=== PATIENT | male | born 1985 | race Caucasian/White ===

== ENCOUNTER 2024-05-28 16:15 | Emergency (ER) | payer OTHER ==
[~2024-05-28] VITALS: Ht 175.3 cm; Wt 99.3 kg
[2024-05-28] MEDS: KETOROLAC TROMETHAMINE 30 MG/ML VIAL IM STA (17:20)
[2024-05-28] MEDS: TRAMADOL HCL 50 MG TAB PO ONE (17:21)
[2024-05-28] MEDS ORDERED: NAPROXEN250 MG PO (17:33)
[2024-05-28 17:45] VITALS: PULSE 57; RESP 16; TEMP 97.9; O2SAT 96
== END 2024-05-28 17:50 | disposition home or self-care (01) ==
LOC: ER 16:45
DX: S63.591A Other specified sprain of right wrist, initial encounter (principal); M76.61 Achilles tendinitis, right leg; W11.XXXA Fall on and from ladder, initial encounter; Y92.89 Other specified places as the place of occurrence of the external cause; F17.210 Nicotine dependence, cigarettes, uncomplicated
CPT/HCPCS: 73110; 73590; 73610; 99283; J1885